=== PATIENT | female | born 1955 | race Caucasian/White ===

== ENCOUNTER 2017-10-19 11:42 | Emergency (ER) | payer BC ==
--- NOTE | 2017-10-19 13:57 | RAD ---
RIGHT FOOT 3 VIEWS: Date: 10/19/17 No fracture or periosteal reaction seen. All bony structures appear intact. A large calcaneal spur is present. IMPRESSION: Calcaneal spur, but no acute findings. POS: HOME
== END 2017-10-19 12:24 | disposition home or self-care (01) ==
LOC: BURERS 11:42
DX: M79.671 Pain in right foot (principal); K58.9 Irritable bowel syndrome, unspecified; E11.9 Type 2 diabetes mellitus without complications; E78.5 Hyperlipidemia, unspecified; I10 Essential (primary) hypertension; F32.9 Major depressive disorder, single episode, unspecified; F41.9 Anxiety disorder, unspecified; F17.210 Nicotine dependence, cigarettes, uncomplicated; Z79.84 Long term (current) use of oral hypoglycemic drugs; Z79.899 Other long term (current) drug therapy